=== PATIENT | female | born 1990 | race Caucasian/White ===

== ENCOUNTER 2021-05-07 08:35 | Emergency (ER) | payer OTHER ==
[~2021-05-07] VITALS: Ht 165.1 cm; Wt 125.2 kg
[2021-05-07 10:08] LABS: HEMOGLOBIN 14.4 gm/dl (12.3-15.3); RED BLOOD COUNT 4.78 M/UL (4.00-5.10); WHITE BLOOD COUNT 11.2 K/UL (4.5-11.0)
[2021-05-07] MEDS ORDERED: DOXYCYCLINE MO100 MG PO (10:11)
[2021-05-07] MEDS ORDERED: [UNRECOGNIZED DRUG - OTHER] TP (10:11)
[2021-05-07] MEDS ORDERED: MEDROL DOSEPAK 24 MG PO (10:11)
[2021-05-07 10:40] LABS: BUN/CREATININE RATIO 20 (0-10)
== END 2021-05-07 11:00 | disposition home or self-care (01) ==
LOC: ER1 08:35
PROVIDERS: Nurse Practitioner
DX: L40.9 Psoriasis, unspecified (principal); I10 Essential (primary) hypertension
CPT/HCPCS: 80053; 85025; 87070; 87205; 99283